=== PATIENT | male | born 2000 | race Caucasian/White ===

== ENCOUNTER 2021-03-30 11:59 | Emergency (ER) | payer BC, OTHER ==
[~2021-03-30] VITALS: Ht 175.3 cm; Wt 79.4 kg
--- NOTE | 2021-03-30 12:17 | NUR ---
ERMD at bedside for hx and physical
--- NOTE | 2021-03-30 12:30 | NUR ---
notified CT (rad team) of order. acknowledged by Geovany
[2021-03-30 13:25] VITALS: BP 118/77
--- NOTE | 2021-03-30 13:25 | NUR ---
Patient discharged to home in stable condition. Written and verbal after care instructions given. Patient verbalizes understanding of instructions. Stressed follow up or return to ER for worsening s/s.
== END 2021-03-30 13:26 | disposition home or self-care (01) ==
LOC: ER 12:02
DX: S16.1XXA Strain of muscle, fascia and tendon at neck level, initial encounter (principal); S39.012A Strain of muscle, fascia and tendon of lower back, initial encounter; V49.40XA Driver injured in collision with unspecified motor vehicles in traffic accident, initial encounter; Y92.414 Local residential or business street as the place of occurrence of the external cause; R51.9 Headache, unspecified
CPT/HCPCS: 70450; A4663

== ENCOUNTER 2021-06-11 16:19 | Emergency (ER) | payer BC, OTHER ==
[~2021-06-11] VITALS: Ht 175.3 cm; Wt 79.4 kg
--- NOTE | 2021-06-11 17:14 | NUR ---
PT WAS EVALUATED BY DR LAVES. PT WAS D/C'd TO HOME. D/C INSTRUCTIONS GIVEN TO THE PT BY DR ALVES.
[2021-06-11 17:15] VITALS: BP 135/78
== END 2021-06-11 17:16 | disposition home or self-care (01) ==
LOC: ER 16:20
DX: Z20.822 Contact with and (suspected) exposure to COVID-19 (principal)
CPT/HCPCS: A4663